=== PATIENT | male | born 1945 | race Caucasian/White ===

== ENCOUNTER → 2017-03-19 | Outpatient (CLI) | payer MEDICARE ==
[~2017-03-19] MED LIST: AMARYL 2MG T2 MG/TAB PO; AMARYL1 MG PO; AMBIEN 10MG10 MG PO; AMITRIPTYLINE H10 M1 PO; AMITRIPTYLINE H25 M1 PO; BENICAR40 MG PO; CELEBREX 200MG200 MG PO; CEPHALEXIN500 M1 PO; FERROUS SU325 MG/TAB PO; FOLIC ACID PO; GLUCOSAMINE/CHONDROI PO; HCTZ 25MG TAB25 MG PO; NORCO 325 MG-51 TAB PO; VITAMIN C500 MG PO
== END ==
LOC: SUN.DIA 11:00
DX: E11.65 Type 2 diabetes mellitus with hyperglycemia (principal); E11.40 Type 2 diabetes mellitus with diabetic neuropathy, unspecified; Z68.37 Body mass index [BMI] 37.0-37.9, adult; Z71.3 Dietary counseling and surveillance; I10 Essential (primary) hypertension; Z96.653 Presence of artificial knee joint, bilateral

== ENCOUNTER 2017-03-24 01:51 | Emergency (ER) | payer MEDICARE ==
[~2017-03-24] VITALS: Ht 185.4 cm; Wt 128.6 kg
[2017-03-24 01:54] VITALS: TEMP 98.7
[2017-03-24 02:22] LABS: BASO # 0.1 (0.0-0.2); BASO % 0.6 % (0.0-2.0); EOS # 0.2 (0.0-0.7); EOS % 1.8 % (0-4.0); GRAN # 7.7 (1.4-6.5); GRAN % 69.1 % (42.2-75.2); HEMATOCRIT 51.2 % (42.0-52.0); HEMOGLOBIN 17.2 g/dl (13.5-18.0); LYMPH # 2.4 (1.2-3.4); LYMPH % 21.1 % (20.0-51.0); MEAN CELL VOLUME 93 fl (80.0-100.0); MEAN CORPUSCULAR HEMOGLOBIN 31 pg (27.0-31.0); MEAN CORPUSCULAR HGB CONC 34 g/dl (33.0-37.0); MEAN PLATELET VOLUME 10.9 fl (7.4-10.4); MONO # 0.8 (0.1-0.6); MONO % 7.2 % (1.7-9.3); PLATELET COUNT 256 K/mm3 (130-400); RED BLOOD COUNT 5.52 M/mm3 (4.20-5.60); REDCELL DISTRIBUTION WIDTH-CV 12.7 % (11.5-14.5); WHITE BLOOD COUNT 11.2 K/mm3 (4.8-10.8)
[2017-03-24 02:29] LABS: ALLEN TEST YES; ALLENS TEST RESULT PASS; ARTERIAL BLD GAS O2 SATURATION 91.2 % (92-100); ARTERIAL BLD GAS TCO2 CT 27.4; ARTERIAL BLOOD GAS BASE EXCESS 1.8 (-2-2); ARTERIAL BLOOD GAS HCO3 26.1 meq/L (22-26); ARTERIAL BLOOD GAS PO2 61.2 mmHg (80-100); ARTERIAL BLOOD GAS pH 7.43 (7.35-7.45); ATS? YES; OXYHEMOGLOBIN 88.9 %
[2017-03-24 03:10] LABS: ADJUSTED CALCIUM 8.2 mg/dL (8.4-10.2); ALBUMIN 4.3 gm/dL (3.5-5.0); CALCIUM 8.4 mg/dL (8.4-10.2); POTASSIUM 3.7 mmol/L (3.4-5.0); TOTAL PROTEIN 7.4 gm/dL (6.4-8.2)
[2017-03-24 04:10] VITALS: BP 141/99; PULSE 110
== END 2017-03-24 04:40 | disposition home or self-care (01) ==
LOC: COL.ER 01:51
PROVIDERS: Physician Assistant
DX: J70.5 Respiratory conditions due to smoke inhalation (principal); X00.8XXA Other exposure to uncontrolled fire in building or structure, initial encounter; Y92.003 Bedroom of unspecified non-institutional (private) residence as the place of occurrence of the external cause; S60.512A Abrasion of left hand, initial encounter; I10 Essential (primary) hypertension; E11.9 Type 2 diabetes mellitus without complications

== ENCOUNTER → 2017-09-17 | Outpatient (CLI) | payer MEDICARE, OTHER | LOC: SUN.DIA 10:39 | DX: E11.40 Type 2 diabetes mellitus with diabetic neuropathy, unspecified (principal); I10 Essential (primary) hypertension; E66.9 Obesity, unspecified; Z68.36 Body mass index [BMI] 36.0-36.9, adult; Z71.3 Dietary counseling and surveillance | CPT/HCPCS: G0108 ==

== ENCOUNTER → 2018-01-15 | Outpatient (CLI) | payer MEDICARE ==
[2018-01-15 11:39] LABS: HEMOGLOBIN 18.7 g/dl (13.5-18.0)
[2018-01-15 12:29] LABS: HEMATOCRIT 54.6 % (42.0-52.0)
== END ==
LOC: COL.LAB 09:04
PROVIDERS: Urology
DX: D75.1 Secondary polycythemia (principal)

== ENCOUNTER → 2018-01-22 | Outpatient (CLI) | payer MEDICARE ==
[2018-01-22 13:36] LABS: HEMOGLOBIN 17.2 g/dl (13.5-18.0)
[2018-01-22 15:38] LABS: HEMATOCRIT 51.7 % (42.0-52.0)
== END ==
LOC: COL.LAB 12:51
PROVIDERS: Urology
DX: D58.2 Other hemoglobinopathies (principal)

== ENCOUNTER → 2018-03-05 | Outpatient (CLI) | payer MEDICARE ==
[2018-03-05 14:45] LABS: HEMOGLOBIN 15.2 g/dl (13.5-18.0)
[2018-03-05 14:46] LABS: HEMATOCRIT 44.5 % (42.0-52.0)
== END ==
LOC: COL.LAB 02-05 15:43
PROVIDERS: Urology
DX: D75.1 Secondary polycythemia (principal)

== ENCOUNTER → 2018-03-18 | Outpatient (CLI) | payer MEDICARE | LOC: SUN.DIA 10:09 | DX: E11.40 Type 2 diabetes mellitus with diabetic neuropathy, unspecified (principal); I10 Essential (primary) hypertension; E66.9 Obesity, unspecified; Z68.36 Body mass index [BMI] 36.0-36.9, adult; Z71.3 Dietary counseling and surveillance | CPT/HCPCS: G0108 ==

== ENCOUNTER → 2018-09-29 | Outpatient (CLI) | payer MEDICARE | LOC: SUN.DIA 10:12 | DX: E11.40 Type 2 diabetes mellitus with diabetic neuropathy, unspecified (principal); I10 Essential (primary) hypertension; E66.9 Obesity, unspecified | CPT/HCPCS: G0108 ==

== ENCOUNTER → 2018-11-26 | Outpatient (CLI) | payer MEDICARE | LOC: SUN.DIA 12:45 | DX: E11.40 Type 2 diabetes mellitus with diabetic neuropathy, unspecified (principal); I10 Essential (primary) hypertension; E66.9 Obesity, unspecified ==

== ENCOUNTER → 2019-01-20 | Outpatient (CLI) | payer MEDICARE | LOC: SUN.DIA 12-30 13:38 | DX: E11.40 Type 2 diabetes mellitus with diabetic neuropathy, unspecified (principal); I10 Essential (primary) hypertension; E66.9 Obesity, unspecified ==